=== PATIENT | male | born 1940 | race Asian ===

== ENCOUNTER 2024-02-29 11:24 | Outpatient (RCR) | payer MEDICARE, MEDICAID, SELFPAY | END 2024-03-17 23:59 | disposition home or self-care (01) | LOC: SCTC 11:24 | PROVIDERS: PCP Nurse Practitioner Primary Care; Referring Provider Nurse Practitioner Primary Care; Visit Provider Internal Medicine Hematology & Oncology | DX: R79.89 Other specified abnormal findings of blood chemistry (principal) | CPT/HCPCS: 99212; G0463 ==